=== PATIENT | female | born 1985 | race Caucasian/White ===

== ENCOUNTER 2017-08-08 12:57 | Emergency (ER) | payer BC ==
--- NOTE | 2017-08-08 13:49 | EDM.PDOC ---
ED HPI GENERAL MEDICAL PROBLEM - General Chief Complaint: ENT Problem Stated Complaint: COLD Time Seen by Provider: 08/08/17 13:20 Source of Information: Reports: Patient History Limitations: Reports: No Limitations - History of Present Illness INITIAL COMMENTS - FREE TEXT/NARRATIVE: 31-year-old female with cold symptoms are worsening over the course of the past week. Cough is becoming productive, nasal congestion is becoming worse and she' s got generalized malaise, aches, and a sore throat. Ears started hurting yesterday. No nausea or vomiting. Severity: Mild Associated Symptoms: Reports: Cough, Fever/Chills, Headaches, Malaise Bilateral Ear Pain Score (Numeric/FACES): 5 - Related Data Allergies Allergy/AdvReac Type Severity Reaction Status Date / Time No Known Allergies Allergy Verified 08/08/17 13:30 Home Meds: Home Meds NK [No Known Home Meds] 08/08/17 [History] ED ROS GENERAL - Review of Systems Review Of Systems: See Below Constitutional: Reports: Fever, Chills, Malaise HEENT: Reports: Ear Pain, Rhinitis, Throat Pain Respiratory: Reports: Cough, Sputum GI/Abdominal: Denies: Abdominal Pain, Nausea, Vomiting : Reports: No Symptoms Skin: Reports: No Symptoms Neurological: Reports: Headache Psychiatric: Reports: No Symptoms ED EXAM, GENERAL - Physical Exam Exam: See Below Exam Limited By: No Limitations General Appearance: Alert, No Apparent Distress Eye Exam: Bilateral Eye: Normal Inspection Ears: Normal TMs Throat/Mouth: Normal Inspection Neck: No: Lymphadenopathy (R), Lymphadenopathy (L) Respiratory/Chest: No Respiratory Distress, Lungs Clear Neurological: Alert, Oriented Psychiatric: Normal Affect, Normal Mood Skin Exam: Warm, Dry Course - Vital Signs Last Recorded V/S: Last Vital Signs Temp 99.8 F 08/08/17 13:30 Pulse 87 08/08/17 13:30 Resp 14 08/08/17 13:30 BP 108/65 08/08/17 13:30 Pulse Ox 95 08/08/17 13:30 - Orders/Labs/Meds Orders: Active Orders 24 hr Category Date Time Status CULTURE STREP A CONFIRMATION [RM] Routine Lab 08/08/17 13:34 Results STREP SCRN A RAPID W CULT CONF [RM] Routine Lab 08/08/17 13:34 Results - Re-Assessments/Exams Free Text/Narrative Re-Assessment/Exam: 08/08/17 13:48 Rapid strep and influenza antigens were obtained. 08/08/17 14:06 Strep was negative but influenza was positive for influenza A. Patient was given a prescription for some viscous lidocaine for his sore throat and encouraged to take naproxen twice daily, get plenty of fluids and rest and return if worsening. Departure - Departure Time of Disposition: 14:21 Disposition: Home, Self-Care 01 Condition: Good Clinical Impression: Influenza A - Discharge Information Instructions: Influenza, Adult, [id number] Referrals: PCP,None [Primary Care Provider] - Forms: ED Department Discharge Care Plan Goals: Used lidocaine for throat pain as directed, take 2 Aleve twice daily for muscle aches and drink lots of water and get rest if possible. Return if worsening such as difficulty breathing. - My Orders Last 24 Hours: My Active Orders 08/08/17 13:34 CULTURE STREP A CONFIRMATION [RM] Routine STREP SCRN A RAPID W CULT CONF [RM] Routine - Assessment/Plan Last 24 Hours: My Active Orders 08/08/17 13:34 CULTURE STREP A CONFIRMATION [RM] Routine STREP SCRN A RAPID W CULT CONF [RM] Routine
== END 2017-08-08 14:21 | disposition home or self-care (01) ==
LOC: JP.ED 12:57
DX: J10.1 Influenza due to other identified influenza virus with other respiratory manifestations (principal)
CPT/HCPCS: 87081; 87430; 87804; 99284

== ENCOUNTER 2020-02-18 20:25 | Emergency (ER) | payer BC ==
--- NOTE | 2020-02-18 21:00 | EDM.PDOC ---
ED HPI GENERAL MEDICAL PROBLEM - General Chief Complaint: Skin Complaint Stated Complaint: BEE STING Time Seen by Provider: 02/18/20 20:40 Source of Information: Reports: Patient, Old Records, RN History Limitations: Reports: No Limitations - History of Present Illness INITIAL COMMENTS - FREE TEXT/NARRATIVE: 34 yo female was stung by a bee on the back of her R ankle a couple days ago. Is not indurated and slightly itchy. Some swelling distal to area of involvement. Was worried about infection. No other sx's. Using Benedryl cream to area without benefit. 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) (Benedryl cream) Right Lower Leg Pain Score (Numeric/FACES): 3 - Related Data Allergies Allergy/AdvReac Type Severity Reaction Status Date / Time No Known Allergies Allergy Verified 02/18/20 20:49 Home Meds: Home Meds Levothyroxine [Synthroid] 100 mcg PO ACBREAKFAST 02/18/20 [History] 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 Denies: Urticaria Neurological: Reports: No Symptoms ED EXAM, SKIN/RASH Exam: See Below General Appearance: Alert, WD/WN, No Apparent Distress Extremities: Pedal Edema (trace edema to the posterior R ankle), Increased Warmth (subtle increase in warmth), Redness (slightly red, not bright red), Other (woody induration of area noted.). No: Limited Range of Motion Skin: Warm, Dry, Intact, Erythema (slight post R ankle), Increased Warmth (slight to post R ankle. ), Rash (to affected area much like a contact dermatitis). No: Wound/Incision Location, Skin: Lower Extremity, Right Characteristics: Confluent Associated features: Warmth (slight), Swelling (slight), Induration. No: Tenderness, Lymphangitis Course - Vital Signs Last Recorded V/S: Last Vital Signs Temp 36.6 C 02/18/20 20:50 Pulse 68 02/18/20 20:50 Resp 14 02/18/20 20:50 BP 131/80 02/18/20 20:50 Pulse Ox 98 02/18/20 20:50 Departure - Departure Time of Disposition: 21:10 Disposition: Home, Self-Care 01 Condition: Good Clinical Impression: Local reaction to insect sting Qualifiers: Encounter type: initial encounter Injury intent: accidental or unintentional Qualified Code(s): T63.481A - Toxic effect of venom of other arthropod, accidental (unintentional), initial encounter - Discharge Information *PRESCRIPTION DRUG MONITORING PROGRAM REVIEWED*: Not Applicable *COPY OF PRESCRIPTION DRUG MONITORING REPORT IN PATIENT [place]: Not Applicable Referrals: PCP,None [Primary Care Provider] - Forms: ED Department Discharge Additional Instructions: Take diphenhydramine 50 mg every 4-6 hrs as needed. Elevate the R foot above your heart as much as possible. If you need to be on your feet for an extended period, then use an SG wrap to compress the area. Apply Triamcinolone cream twice daily to area until it resolves. Recheck if worse. Sepsis Event Note (ED) - Evaluation Sepsis Screening Result: No Definite Risk - Focused Exam Vital Signs: Vital Signs Temp Pulse Resp BP Pulse Ox 02/18/20 20:50 36.6 C 68 14 131/80 98
[2020-02-18] MEDS ORDERED: diphenhydrAMINE 25 MG Cap PO ONE (21:16)
== END 2020-02-18 21:23 | disposition home or self-care (01) ==
LOC: JP.ED 20:25
DX: T63.441A Toxic effect of venom of bees, accidental (unintentional), initial encounter (principal); E03.9 Hypothyroidism, unspecified; E06.3 Autoimmune thyroiditis; Z79.899 Other long term (current) drug therapy
CPT/HCPCS: 99282